=== PATIENT | male | born 1990 | race Asian ===

== ENCOUNTER 2025-06-05 10:35 | Outpatient (CLI) | payer OTHER, SELFPAY | END 2025-06-05 10:36 | disposition home or self-care (01) | LOC: LKVREF 10:39 | PROVIDERS: Visit Provider Family Medicine | DX: Z00.00 Encounter for general adult medical examination without abnormal findings (principal); L65.9 Nonscarring hair loss, unspecified; E10.9 Type 1 diabetes mellitus without complications; Z83.3 Family history of diabetes mellitus | CPT/HCPCS: 80053; 80061; 82306; 84443 ==